=== PATIENT | female | born 1990 | race African-American/Black ===

== ENCOUNTER 2019-04-03 10:57 | Emergency (ER) | payer MEDICAID ==
[~2019-04-03] VITALS: Ht 177.8 cm; Wt 122.0 kg
[2019-04-03] MEDS ORDERED: ALBUTEROL (0.083%) 2.5MG/3ML NEB HHN STA (11:42)
[2019-04-03] MEDS ORDERED: IPRATROPIUM BROMIDE (0.02%) 0.5MG/2.5ML NEB HHN STA (11:42)
[2019-04-03] MEDS ORDERED: PREDNISONE 20MG TABLET PO STA (11:42)
[2019-04-03 13:00] VITALS: BP 114/68
== END 2019-04-03 13:40 | disposition home or self-care (01) ==
LOC: ER 10:57
DX: J45.901 Unspecified asthma with (acute) exacerbation (principal); R07.89 Other chest pain; J20.9 Acute bronchitis, unspecified
CPT/HCPCS: 71045; 81025; 93005; 94640; 99283; J7512; J7610; Z7610

== ENCOUNTER 2024-12-31 03:06 | Inpatient (IN) | payer MEDICARE, MEDICAID ==
[~2024-12-31] VITALS: Ht 177.8 cm; Wt 89.8 kg
[2024-12-31] MEDS: IPRATROPIUM BROMIDE (0.02%) 0.5MG/2.5ML NEB HHN ONE (03:53)
[2024-12-31] MEDS: ALBUTEROL (0.083%) 2.5MG/3ML NEB HHN ONE (03:53)
[2024-12-31 03:54] VITALS: PULSE 79; RESP 20; O2SAT 99
[2024-12-31 04:02] LABS: BASOPHILS % 0.2 % (0.0-2.0); EOSINOPHILS % 1.8 % (0.0-5.0); HEMATOCRIT. 33.0 % (36.0-48.0); HEMOGLOBIN. 10.7 g/dL (12.0-16.0); LYMPHOCYTES % 11.2 % (20.0-50.0); MEAN PLATELET VOLUME 7.2 fl (7.4-10.4); MONOCYTES % 7.2 % (2.0-8.0); NEUTROPHILS % 79.6 % (40.0-76.0); PLATELET 327 x1000/uL (130-400); RED BLOOD CELL COUNT 3.97 mill/uL (4.2-5.4); RED CELL DISTRIBUTION WIDTH 16.0 % (11.6-14.6)
[2024-12-31] MEDS: METHYLPREDNISOLONE SOD SUCC 125MG/2ML (ACT-O-VIAL) IV ONE (04:14)
[2024-12-31 04:15] LABS: CREATININE 0.8 mg/dL (0.6-1.0); UREA NITROGEN BLOOD < 5 mg/dL (9-23)
[2024-12-31 04:25] LABS: HCG SCREEN NEGATIVE
[2024-12-31] MEDS ORDERED: METHYLPREDNISOLONE SOD SUCC 125MG/2ML (ACT-O-VIAL) IV SCH (06:00)
[2024-12-31] MEDS: ALBUTEROL (0.083%) 2.5MG/3ML NEB HHN SCH (06:08)
[2024-12-31 08:00] VITALS: BP_SYST 115; BP_DIAS 66; BP_DIAS 68; PULSE 77; RESP 18; RESP 20; TEMP 36.9; TEMP 36.9184; O2SAT 98
[2024-12-31] MEDS ORDERED: BUDESONIDE 0.5MG/2ML NEB HHN SCH (09:00)
[2024-12-31] MEDS ORDERED: IPRATROPIUM/ALBUTEROL 0.5-3(2.5)MG/3ML NEB HHN PRN (09:00)
[2024-12-31 12:00] VITALS: BP 120/79; PULSE 89; RESP 20; TEMP 36.7; O2SAT 97
[2024-12-31] MEDS ORDERED: IPRATROPIUM/ALBUTEROL 0.5-3(2.5)MG/3ML NEB HHN SCH (12:30)
[2024-12-31] MEDS: POTASSIUM CHLORIDE 20MEQ TABLET SR PO NR (12:58)
[2024-12-31] MEDS: METHYLPREDNISOLONE SOD SUCC 40MG/ML (ACT-O-VIAL) IV SCH (12:59)
[2024-12-31 16:00] VITALS: BP 126/78; PULSE 65; RESP 16; TEMP 36.4; O2SAT 96
== END 2024-12-31 15:30 | disposition left against medical advice (07) | DRG 203 ==
LOC: ER 03:06 → 7WST 05:07 → EDBEDREQ 05:21 → EDBEDREQTM 05:21 → ENRESERV 06:04
PROVIDERS: ADMIT Internal Medicine; ATTEND Internal Medicine
DX: J45.901 Unspecified asthma with (acute) exacerbation (principal); F20.9 Schizophrenia, unspecified; J45.909 Unspecified asthma, uncomplicated; R06.02 Shortness of breath; F31.9 Bipolar disorder, unspecified; Z53.29 Procedure and treatment not carried out because of patient's decision for other reasons; Z20.822 Contact with and (suspected) exposure to COVID-19
CPT/HCPCS: 36415; 71045; 80048; 84703; 85025; 87426; 94070; 94640; 94664; 96374; 98960; 99285; J2919

== ENCOUNTER 2025-02-09 21:34 | Emergency (ER) | payer MEDICAID, OTHER, MEDICARE ==
[~2025-02-09] VITALS: Ht 190.5 cm; Wt 93.0 kg
[2025-02-09 21:43] VITALS: BP 138/70; PULSE 65; RESP 20; TEMP 97.7; O2SAT 98
== END 2025-02-09 22:04 | disposition home or self-care (01) ==
LOC: ER 21:34
DX: Z02.89 Encounter for other administrative examinations (principal); J45.909 Unspecified asthma, uncomplicated; F20.9 Schizophrenia, unspecified; F31.9 Bipolar disorder, unspecified
CPT/HCPCS: 99283